=== PATIENT | male | born 1985 | race African-American/Black ===

== ENCOUNTER 2016-06-24 20:33 | Emergency (ER) | payer MEDICARE, MEDICAID ==
[2016-06-24 22:04] LABS: APPEARANCE CLEAR (CLEAR); BILIRUBIN NEGATIVE (NEGATIVE); COLOR YELLOW (YELLOW); GLUCOSE NEGATIVE (NEGATIVE); KETONE NEGATIVE (NEGATIVE); LEUKOCYTE ESTERASE TRACE (NEGATIVE); NITRITE NEGATIVE (NEGATIVE); PROTEIN NEGATIVE (NEGATIVE); SPECIFIC GRAVITY 1.015 (1.005-1.020); UROBILINOGEN NORMAL (NORMAL)
[2016-06-24 22:06] LABS: BACTERIA NONE SEEN /hpf (NONE SEEN); CALCIUM OXALATE CRYSTALS OCC /hpf (NONE SEEN); EPITHELIAL CELLS 0-5 /hpf (0-5); RED CELLS - URINE 0-5 /hpf (0-5); WHITE CELLS - URINE 0-5 /hpf (0-5)
== END 2016-06-24 23:30 | disposition home or self-care (01) ==
LOC: D.ER 20:33
PROVIDERS: Family Medicine
DX: R42 Dizziness and giddiness (principal); F31.9 Bipolar disorder, unspecified

== ENCOUNTER 2016-06-29 19:49 | Emergency (ER) | payer MEDICARE, MEDICAID ==
[2016-06-29 21:33] LABS: APPEARANCE CLEAR (CLEAR); COLOR YELLOW (YELLOW)
[2016-06-29 21:34] LABS: BILIRUBIN NEGATIVE (NEGATIVE); GLUCOSE NEGATIVE (NEGATIVE); KETONE NEGATIVE (NEGATIVE); LEUKOCYTE ESTERASE TRACE (NEGATIVE); NITRITE NEGATIVE (NEGATIVE); PROTEIN NEGATIVE (NEGATIVE); UROBILINOGEN NORMAL (NORMAL)
[2016-06-29 21:35] LABS: BACTERIA NONE SEEN /hpf (NONE SEEN); EPITHELIAL CELLS NSEEN /hpf (0-5); RED CELLS - URINE 0-5 /hpf (0-5); WHITE CELLS - URINE NSEEN /hpf (0-5)
== END 2016-06-29 23:47 | disposition home or self-care (01) ==
LOC: D.ER 19:49
PROVIDERS: Family Medicine
DX: N39.0 Urinary tract infection, site not specified (principal); F31.9 Bipolar disorder, unspecified

== ENCOUNTER 2016-10-15 18:09 | Emergency (ER) | payer MEDICARE, MEDICAID | END 2016-10-15 20:45 | disposition home or self-care (01) | LOC: D.ER 18:09 | DX: M25.561 Pain in right knee (principal); F17.200 Nicotine dependence, unspecified, uncomplicated; F31.89 Other bipolar disorder ==

== ENCOUNTER 2016-12-04 14:54 | Emergency (ER) | payer MEDICARE, MEDICAID ==
[2016-12-04 16:25] LABS: APPEARANCE CLEAR (CLEAR); BILIRUBIN NEGATIVE (NEGATIVE); COLOR YELLOW (YELLOW); GLUCOSE NEGATIVE (NEGATIVE); KETONE NEGATIVE (NEGATIVE); LEUKOCYTE ESTERASE TRACE (NEGATIVE); NITRITE NEGATIVE (NEGATIVE); PROTEIN NEGATIVE (NEGATIVE); SPECIFIC GRAVITY 1.015 (1.005-1.020); UROBILINOGEN NORMAL (NORMAL)
[2016-12-04 16:27] LABS: WHITE CELLS - URINE 0-5 /hpf (0-5)
== END 2016-12-04 16:50 | disposition home or self-care (01) ==
LOC: D.ER 14:54
PROVIDERS: Nurse Practitioner Acute Care
DX: N34.2 Other urethritis (principal); F17.200 Nicotine dependence, unspecified, uncomplicated; F31.89 Other bipolar disorder

== ENCOUNTER 2017-05-30 02:16 | Emergency (ER) | payer MEDICARE, MEDICAID | END 2017-05-30 03:32 | disposition home or self-care (01) | LOC: D.ER 02:16 | DX: J20.9 Acute bronchitis, unspecified (principal); J45.909 Unspecified asthma, uncomplicated; F17.200 Nicotine dependence, unspecified, uncomplicated ==

== ENCOUNTER 2017-09-01 20:24 | Emergency (ER) | payer MEDICARE, MEDICAID ==
[2017-09-01 20:52] LABS: APPEARANCE SLT CLOUDY (CLEAR); BILIRUBIN NEGATIVE (NEGATIVE); COLOR DK YELLOW (YELLOW); GLUCOSE NEGATIVE (NEGATIVE); KETONE NEGATIVE (NEGATIVE); NITRITE NEGATIVE (NEGATIVE); PROTEIN TRACE mg/dL (NEGATIVE); SPECIFIC GRAVITY 1.025 (1.005-1.020); UROBILINOGEN NORMAL (NORMAL)
[2017-09-01 22:16] LABS: BASOPHILS 0.2 % (0-2); EOSINOPHILS 2.1 % (0-7); HEMATOCRIT 44.9 % (42.0-54.0); HEMOGLOBIN 14.6 g/dL (13.5-17.5); IMMATURE GRANULOCYTES 0.1 % (0-5); LYMPHOCYTES 41.8 % (15-50); MCH 27.6 pg (26.0-34.0); MCHC 32.5 g/dL (31.0-37.0); MCV 84.9 fL (80.0-100.0); MEAN PLATELET VOLUME 9.7 fL (7.4-10.4); NEUTROPHILS 46.8 % (40-80); PLATELET COUNT 225 10x3/uL (130-400); RBC 5.29 10x6/uL (4.20-6.10); RDW 12.9 % (11.5-14.5)
[2017-09-01 22:29] LABS: ALBUMIN 4.1 g/dL (3.4-5.0); ALKALINE PHOSPHATASE 84 U/L (46-116); ALT (SGPT) 36 U/L (10-68); BILIRUBIN - TOTAL 0.17 mg/dL (0.2-1.3); C-REACTIVE PROTEIN < 0.2 mg/dL (0.0-0.9); CALC OSMOLALITY 277 mosm/kg (275-300); CALCIUM 9.4 mg/dL (8.5-10.1); CARBON DIOXIDE 28.2 mmol/L (21.0-32.0); CHLORIDE - SERUM 101 mmol/L (98-107); CREATININE - SERUM 1.9 mg/dL (0.6-1.3); GLUCOSE 94 mg/dL (74-106); POTASSIUM - SERUM 3.8 mmol/L (3.5-5.1); PROTEIN - SERUM 8.2 g/dL (6.4-8.2); SODIUM 137 mmol/L (136-145); UREA NITROGEN 23 mg/dL (7-18); eGFR NON AFRICAN AMERICAN 43 mL/min (90-120)
== END 2017-09-01 23:06 | disposition home or self-care (01) ==
LOC: D.ER 20:24
PROVIDERS: Emergency Medicine
DX: R19.7 Diarrhea, unspecified (principal); R10.32 Left lower quadrant pain; R10.31 Right lower quadrant pain; N28.9 Disorder of kidney and ureter, unspecified

== ENCOUNTER 2018-03-29 12:18 | Emergency (ER) | payer MEDICARE, MEDICAID ==
[~2018-03-29] VITALS: Ht 182.9 cm; Wt 122.7 kg
[2018-03-29 12:55] VITALS: Ht 182.9 cm; Wt 122.7 kg
[2018-03-29 17:39] LABS: BASOPHILS 0.3 % (0-2); EOSINOPHILS 2.7 % (0-7); HEMATOCRIT 43.7 % (42.0-54.0); HEMOGLOBIN 14.3 g/dL (13.5-17.5); IMMATURE GRANULOCYTES 0.1 % (0-5); LYMPHOCYTES 41.6 % (15-50); MCH 28.4 pg (26.0-34.0); MCHC 32.7 g/dL (31.0-37.0); MCV 86.7 fL (80.0-100.0); MEAN PLATELET VOLUME 9.3 fL (7.4-10.4); MONOCYTES 5.9 % (2-11); NEUTROPHILS 49.4 % (40-80); PLATELET COUNT 211 10x3/uL (130-400); RBC 5.04 10x6/uL (4.20-6.10); RDW 13.3 % (11.5-14.5); WBC 7.3 10x3/uL (4.8-10.8)
[2018-03-29 17:53] LABS: ANION GAP 14.7 mmol/L (8-16); BILIRUBIN - TOTAL 0.21 mg/dL (0.2-1.3); CALCIUM 9.3 mg/dL (8.5-10.1); CARBON DIOXIDE 27.4 mmol/L (21.0-32.0); CREATININE - SERUM 1.3 mg/dL (0.6-1.3); POTASSIUM - SERUM 4.1 mmol/L (3.5-5.1); PROTEIN - SERUM 7.9 g/dL (6.4-8.2)
[2018-03-29] MEDS ORDERED: ANTIVERT12.5 MG PO (18:08)
[2018-03-29 18:27] VITALS: BP 136/72
== END 2018-03-29 18:29 | disposition home or self-care (01) ==
LOC: D.ER 12:18
PROVIDERS: Family Medicine
DX: R42 Dizziness and giddiness (principal); R53.83 Other fatigue; R35.0 Frequency of micturition; F17.200 Nicotine dependence, unspecified, uncomplicated

== ENCOUNTER 2018-04-07 00:29 | Emergency (ER) | payer MEDICARE, MEDICAID ==
[~2018-04-07 00:29] MED LIST: ANTIVERT12.5 MG PO
[2018-04-07 00:34] VITALS: Ht 182.9 cm
[2018-04-07] MEDS ORDERED: PENICILLIN V P500 MG PO (01:47)
[2018-04-07] MEDS ORDERED: NORCO 10-325 TA1 TAB PO (01:47)
[2018-04-07 02:05] VITALS: BP 142/88
== END 2018-04-07 02:05 | disposition home or self-care (01) ==
LOC: D.ER 00:29
DX: K04.7 Periapical abscess without sinus (principal); K08.89 Other specified disorders of teeth and supporting structures; F17.200 Nicotine dependence, unspecified, uncomplicated

== ENCOUNTER 2018-08-12 16:48 | Emergency (ER) | payer MEDICARE, MEDICAID ==
[~2018-08-12] VITALS: Ht 182.9 cm; Wt 122.7 kg
[~2018-08-12 16:48] MED LIST changes: +NORCO 10-325 TA1 TAB PO; +PENICILLIN V P500 MG PO
[2018-08-12 17:24] VITALS: Ht 182.9 cm; Wt 122.7 kg
[2018-08-12 18:24] LABS: T4 THYROXIN - FREE 1.02 ng/dL (0.76-1.46); THYROID STIMULATING HORMONE 1.51 uIU/mL (0.36-3.74)
[2018-08-12 19:18] VITALS: BP 148/72
== END 2018-08-12 19:18 | disposition home or self-care (01) ==
LOC: D.ER 16:48
PROVIDERS: Emergency Medicine
DX: Z71.1 Person with feared health complaint in whom no diagnosis is made (principal)

== ENCOUNTER 2018-09-17 00:16 | Emergency (ER) | payer MEDICARE, MEDICAID ==
[~2018-09-17] VITALS: Ht 182.9 cm; Wt 127.0 kg
[2018-09-17 00:44] VITALS: Ht 182.9 cm; Wt 127.0 kg
[2018-09-17 02:04] LABS: ALBUMIN 3.8 g/dL (3.4-5.0); ALKALINE PHOSPHATASE 90 U/L (46-116); ALT (SGPT) 29 U/L (10-68); BILIRUBIN - TOTAL 0.12 mg/dL (0.2-1.3); CALC OSMOLALITY 280 mosm/kg (275-300); CALCIUM 8.8 mg/dL (8.5-10.1); CARBON DIOXIDE 32.3 mmol/L (21.0-32.0); CHLORIDE - SERUM 103 mmol/L (98-107); CREATININE - SERUM 1.6 mg/dL (0.6-1.3); GLUCOSE 97 mg/dL (74-106); POTASSIUM - SERUM 3.6 mmol/L (3.5-5.1); PROTEIN - SERUM 7.9 g/dL (6.4-8.2); SODIUM 139 mmol/L (136-145); UREA NITROGEN 20 mg/dL (7-18); eGFR NON AFRICAN AMERICAN 52 mL/min (90-120)
[2018-09-17 02:05] LABS: AMYLASE - SERUM 56 U/L (25-115); LIPASE 165 U/L (73-393)
[2018-09-17 02:28] LABS: APPEARANCE CLEAR (CLEAR); BILIRUBIN NEGATIVE (NEGATIVE); COLOR YELLOW (YELLOW); GLUCOSE NEGATIVE (NEGATIVE); KETONE NEGATIVE (NEGATIVE); NITRITE NEGATIVE (NEGATIVE); PROTEIN NEGATIVE (NEGATIVE); SPECIFIC GRAVITY 1.015 (1.005-1.020)
[2018-09-17 02:34] LABS: BASOPHILS 0.3 % (0-2); EOSINOPHILS 2.4 % (0-7); HEMATOCRIT 44.2 % (42.0-54.0); HEMOGLOBIN 14.2 g/dL (13.5-17.5); IMMATURE GRANULOCYTES 0.2 % (0-5); LYMPHOCYTES 35.2 % (15-50); MCH 28.1 pg (26.0-34.0); MCHC 32.1 g/dL (31.0-37.0); MCV 87.5 fL (80.0-100.0); MEAN PLATELET VOLUME 10.6 fL (7.4-10.4); MONOCYTES 8.3 % (2-11); NEUTROPHILS 53.6 % (40-80); PLATELET COUNT 234 10x3/uL (130-400); RBC 5.05 10x6/uL (4.20-6.10); RDW 13.1 % (11.5-14.5); WBC 8.8 10x3/uL (4.8-10.8)
[2018-09-17 02:40] LABS: TROPONIN-I < 0.017 ng/mL (0.000-0.060)
[2018-09-17] MEDS ORDERED: PROTONIX40 MG PO (03:37)
[2018-09-17] MEDS ORDERED: CARAFATE1 G PO (03:37)
[2018-09-17 03:53] VITALS: BP 169/89
== END 2018-09-17 03:53 | disposition home or self-care (01) ==
LOC: D.ER 00:16
PROVIDERS: Family Medicine
DX: K29.70 Gastritis, unspecified, without bleeding (principal); R11.2 Nausea with vomiting, unspecified

== ENCOUNTER 2019-03-17 01:51 | Emergency (ER) | payer MEDICARE, MEDICAID ==
[~2019-03-17] VITALS: Ht 182.9 cm; Wt 113.6 kg
[~2019-03-17 01:51] MED LIST changes: +CARAFATE1 G PO; +PROTONIX40 MG PO
[2019-03-17 01:55] VITALS: Ht 182.9 cm; Wt 113.6 kg
[2019-03-17] MEDS ORDERED: LISINOPRIL10 MG PO (01:59)
[2019-03-17] MEDS ORDERED: SOMA350 MG (01:59)
[2019-03-17] MEDS ORDERED: MECLIZINE HCL25 MG PO (01:59)
[2019-03-17 02:30] LABS: BASOPHILS 0.2 % (0-2); EOSINOPHILS 2.3 % (0-7); HEMATOCRIT 44.8 % (42.0-54.0); HEMOGLOBIN 14.5 g/dL (13.5-17.5); IMMATURE GRANULOCYTES 0.1 % (0-5); MCH 28.2 pg (26.0-34.0); MCHC 32.4 g/dL (31.0-37.0); MCV 87.2 fL (80.0-100.0); MEAN PLATELET VOLUME 9.7 fL (7.4-10.4); MONOCYTES 7.5 % (2-11); NEUTROPHILS 52.9 % (40-80); PLATELET COUNT 232 10x3/uL (130-400); RBC 5.14 10x6/uL (4.20-6.10); RDW 13.4 % (11.5-14.5); WBC 8.4 10x3/uL (4.8-10.8)
[2019-03-17 02:52] LABS: ALBUMIN 3.8 g/dL (3.4-5.0); ANION GAP 9.1 mmol/L (8-16); BILIRUBIN - TOTAL 0.14 mg/dL (0.2-1.3); CALCIUM 9.3 mg/dL (8.5-10.1); CARBON DIOXIDE 32.9 mmol/L (21.0-32.0); CREATININE - SERUM 1.5 mg/dL (0.6-1.3); PROTEIN - SERUM 7.5 g/dL (6.4-8.2); THYROID STIMULATING HORMONE 1.79 uIU/mL (0.36-3.74)
[2019-03-17] MEDS ORDERED: MIRALAX17 GM PO (02:58)
[2019-03-17] MEDS ORDERED: COLACE100 MG PO (02:58)
[2019-03-17 03:19] VITALS: BP 147/91
== END 2019-03-17 03:19 | disposition home or self-care (01) ==
LOC: D.ER 01:51
PROVIDERS: Family Medicine
DX: K59.00 Constipation, unspecified (principal); F17.210 Nicotine dependence, cigarettes, uncomplicated

== ENCOUNTER 2019-05-03 11:15 | Emergency (ER) | payer MEDICARE, MEDICAID ==
[~2019-05-03] VITALS: Ht 182.9 cm; Wt 124.5 kg
[~2019-05-03 11:15] MED LIST changes: +COLACE100 MG PO; +LISINOPRIL10 MG PO; +MECLIZINE HCL25 MG PO; +MIRALAX17 GM PO; +SOMA350 MG
[2019-05-03 11:27] VITALS: Ht 182.9 cm; Wt 124.5 kg
[2019-05-03 12:05] LABS: BASOPHILS 0.3 % (0-2); EOSINOPHILS 1.8 % (0-7); HEMOGLOBIN 14.4 g/dL (13.5-17.5); IMMATURE GRANULOCYTES 0.3 % (0-5); LYMPHOCYTES 32.3 % (15-50); MCH 28.2 pg (26.0-34.0); MCV 88.2 fL (80.0-100.0); MONOCYTES 7.4 % (2-11); NEUTROPHILS 57.9 % (40-80); PLATELET COUNT 230 10x3/uL (130-400); RDW 13.3 % (11.5-14.5); WBC 7.3 10x3/uL (4.8-10.8)
[2019-05-03 12:22] LABS: ANION GAP 9.7 mmol/L (8-16); CARBON DIOXIDE 29.2 mmol/L (21.0-32.0); CREATININE - SERUM 1.3 mg/dL (0.6-1.3); POTASSIUM - SERUM 3.9 mmol/L (3.5-5.1)
[2019-05-03 12:38] LABS: ALBUMIN 3.7 g/dL (3.4-5.0); BILIRUBIN - TOTAL 0.26 mg/dL (0.2-1.3); PROTEIN - SERUM 7.6 g/dL (6.4-8.2); THYROID STIMULATING HORMONE 2.08 uIU/mL (0.36-3.74)
[2019-05-03 13:16] VITALS: BP 127/68
== END 2019-05-03 13:17 | disposition home or self-care (01) ==
LOC: D.ER 11:15
PROVIDERS: Emergency Medicine
DX: R00.2 Palpitations (principal); I10 Essential (primary) hypertension; Z72.0 Tobacco use

== ENCOUNTER 2019-06-23 19:01 | Emergency (ER) | payer MEDICARE, MEDICAID ==
[~2019-06-23] VITALS: Ht 182.9 cm; Wt 121.4 kg
[2019-06-23 19:21] VITALS: Ht 182.9 cm; Wt 121.4 kg
[2019-06-23] MEDS ORDERED: MUCINEX DM ER1 EAC1 PO (21:19)
[2019-06-23] MEDS ORDERED: ZOFRAN ODT4 MG/UDTAB PO (21:19)
[2019-06-23] MEDS ORDERED: TAMIFLU75 MG PO (21:19)
[2019-06-23 22:29] VITALS: BP 147/77
== END 2019-06-23 22:19 | disposition home or self-care (01) ==
LOC: D.ER 19:01
DX: J11.1 Influenza due to unidentified influenza virus with other respiratory manifestations (principal); Z72.0 Tobacco use

== ENCOUNTER 2019-08-14 03:04 | Emergency (ER) | payer MEDICARE, MEDICAID ==
[~2019-08-14] VITALS: Ht 182.9 cm; Wt 123.8 kg
[~2019-08-14 03:04] MED LIST changes: +MUCINEX DM ER1 EAC1 PO; +TAMIFLU75 MG PO; +ZOFRAN ODT4 MG/UDTAB PO
[2019-08-14 03:09] VITALS: Ht 182.9 cm; Wt 123.8 kg
[2019-08-14] MEDS ORDERED: MOBIC7.5 MG PO (03:13)
[2019-08-14 03:41] LABS: BASOPHILS 0.2 % (0-2); EOSINOPHILS 2.2 % (0-7); HEMATOCRIT 41.6 % (42.0-54.0); HEMOGLOBIN 13.4 g/dL (13.5-17.5); IMMATURE GRANULOCYTES 0.1 % (0-5); LYMPHOCYTES 39.6 % (15-50); MCH 28.1 pg (26.0-34.0); MCHC 32.2 g/dL (31.0-37.0); MCV 87.2 fL (80.0-100.0); MEAN PLATELET VOLUME 9.8 fL (7.4-10.4); MONOCYTES 8.6 % (2-11); NEUTROPHILS 49.3 % (40-80); PLATELET COUNT 239 10x3/uL (130-400); RBC 4.77 10x6/uL (4.20-6.10); WBC 8.5 10x3/uL (4.8-10.8)
[2019-08-14 03:48] LABS: BACTERIA FEW /hpf (NEGATIVE); EPITHELIAL CELLS 0-5 /hpf (0-5); RED CELLS - URINE 0-5 /hpf (0-5); WHITE CELLS - URINE 0-5 /hpf (NEGATIVE)
[2019-08-14 03:50] LABS: CALC OSMOLALITY 281 mosm/kg (275-300); CALCIUM 8.7 mg/dL (8.5-10.1); CARBON DIOXIDE 26.6 mmol/L (21.0-32.0); CHLORIDE - SERUM 107 mmol/L (98-107); CREATININE - SERUM 1.5 mg/dL (0.6-1.3); GLUCOSE 105 mg/dL (74-106); POTASSIUM - SERUM 3.9 mmol/L (3.5-5.1); SODIUM 141 mmol/L (136-145); UREA NITROGEN 14 mg/dL (7-18); eGFR NON AFRICAN AMERICAN 56 mL/min (90-120)
[2019-08-14 04:00] LABS: ALBUMIN 3.6 g/dL (3.4-5.0); ALKALINE PHOSPHATASE 80 U/L (30-120); ALT (SGPT) 27 U/L (10-68); AMYLASE - SERUM 46 U/L (25-115); LIPASE 122 U/L (73-393); PROTEIN - SERUM 7.3 g/dL (6.4-8.2)
[2019-08-14 04:03] LABS: TROPONIN-I < 0.017 ng/mL (0.000-0.060)
[2019-08-14 07:03] VITALS: BP 136/97
== END 2019-08-14 06:24 | disposition home or self-care (01) ==
LOC: D.ER 03:04
PROVIDERS: Family Medicine
DX: R19.7 Diarrhea, unspecified (principal); R10.30 Lower abdominal pain, unspecified; I10 Essential (primary) hypertension; Z72.0 Tobacco use

== ENCOUNTER 2019-09-23 22:07 | Emergency (ER) | payer MEDICARE, MEDICAID ==
[~2019-09-23] VITALS: Ht 182.9 cm; Wt 113.6 kg
[~2019-09-23 22:07] MED LIST changes: +MOBIC7.5 MG PO
[2019-09-23 22:15] VITALS: Ht 182.9 cm; Wt 113.6 kg
[2019-09-23] MEDS ORDERED: ATIVAN0.5 MG PO (22:17)
[2019-09-23 22:54] LABS: BASOPHILS 0.4 % (0-2); BILIRUBIN NEGATIVE (NEGATIVE); EOSINOPHILS 1.4 % (0-7); GLUCOSE NEGATIVE (NEGATIVE); HEMATOCRIT 43.3 % (42.0-54.0); HEMOGLOBIN 13.8 g/dL (13.5-17.5); IMMATURE GRANULOCYTES 0.1 % (0-5); KETONE NEGATIVE (NEGATIVE); LYMPHOCYTES 36.9 % (15-50); MCH 27.7 pg (26.0-34.0); MCHC 31.9 g/dL (31.0-37.0); MCV 86.9 fL (80.0-100.0); MEAN PLATELET VOLUME 9.6 fL (7.4-10.4); NEUTROPHILS 54.2 % (40-80); NITRITE NEGATIVE (NEGATIVE); PLATELET COUNT 225 10x3/uL (130-400); RBC 4.98 10x6/uL (4.20-6.10); RDW 12.6 % (11.5-14.5); UROBILINOGEN NORMAL (NORMAL); WBC 7.9 10x3/uL (4.8-10.8)
[2019-09-23 23:05] LABS: ANION GAP 10.9 mmol/L (8-16); CALCIUM 8.9 mg/dL (8.5-10.1); CARBON DIOXIDE 26.6 mmol/L (21.0-32.0); CREATININE - SERUM 1.4 mg/dL (0.6-1.3); POTASSIUM - SERUM 3.5 mmol/L (3.5-5.1)
[2019-09-23 23:11] LABS: ALBUMIN 3.7 g/dL (3.4-5.0); BILIRUBIN - TOTAL 0.37 mg/dL (0.2-1.3); PROTEIN - SERUM 7.5 g/dL (6.4-8.2)
[2019-09-23] MEDS ORDERED: ULTRAM50 MG PO (23:29)
[2019-09-23 23:52] VITALS: BP 149/88
== END 2019-09-23 23:53 | disposition home or self-care (01) ==
LOC: D.ER 22:07
PROVIDERS: Family Medicine
DX: R10.9 Unspecified abdominal pain (principal); G89.29 Other chronic pain

== ENCOUNTER 2019-10-14 15:14 | Emergency (ER) | payer MEDICARE, MEDICAID ==
[~2019-10-14] VITALS: Ht 182.9 cm; Wt 120.5 kg
[~2019-10-14 15:14] MED LIST changes: +ATIVAN0.5 MG PO; +ULTRAM50 MG PO
[2019-10-14 15:22] VITALS: BP 136/98; Ht 182.9 cm; Wt 120.5 kg
[2019-10-14 16:03] LABS: BASOPHILS 0.4 % (0-2); EOSINOPHILS 1.2 % (0-7); HEMATOCRIT 44.1 % (42.0-54.0); IMMATURE GRANULOCYTES 0.1 % (0-5); MCH 27.6 pg (26.0-34.0); MCHC 31.7 g/dL (31.0-37.0); MCV 86.8 fL (80.0-100.0); MEAN PLATELET VOLUME 9.6 fL (7.4-10.4); MONOCYTES 6.5 % (2-11); NEUTROPHILS 54.8 % (40-80); PLATELET COUNT 252 10x3/uL (130-400); RBC 5.08 10x6/uL (4.20-6.10); RDW 12.6 % (11.5-14.5); WBC 7.3 10x3/uL (4.8-10.8)
[2019-10-14 16:14] LABS: ANION GAP 13.9 mmol/L (8-16); CALCIUM 9.2 mg/dL (8.5-10.1); CARBON DIOXIDE 23.9 mmol/L (21.0-32.0); CREATININE - SERUM 1.3 mg/dL (0.6-1.3); POTASSIUM - SERUM 3.8 mmol/L (3.5-5.1)
[2019-10-14 16:21] LABS: BILIRUBIN - TOTAL 0.23 mg/dL (0.2-1.3); PROTEIN - SERUM 7.9 g/dL (6.4-8.2)
[2019-10-14 16:22] LABS: BILIRUBIN NEGATIVE (NEGATIVE); GLUCOSE NEGATIVE (NEGATIVE); KETONE NEGATIVE (NEGATIVE); NITRITE NEGATIVE (NEGATIVE); SPECIFIC GRAVITY 1.025 (1.005-1.020); UDS - AMPHET NEGATIVE QUAL (NEGATIVE); UDS - BARB NEGATIVE QUAL (NEGATIVE); UDS - BENZO NEGATIVE QUAL (NEGATIVE); UDS - COCAINE NEGATIVE QUAL (NEGATIVE); UDS - OPIATE NEGATIVE QUAL (NEGATIVE); UDS - PCP NEGATIVE QUAL (NEGATIVE); UDS - THC NEGATIVE QUAL (NEGATIVE); UROBILINOGEN NORMAL (NORMAL)
[2019-10-14] MEDS ORDERED: VISTARIL25 MG PO (17:15)
== END 2019-10-14 17:54 | disposition home or self-care (01) ==
LOC: D.ER 15:14
PROVIDERS: Family Medicine
DX: F41.8 Other specified anxiety disorders (principal); F43.9 Reaction to severe stress, unspecified; I10 Essential (primary) hypertension; Z72.0 Tobacco use

== ENCOUNTER 2019-10-15 11:53 | Emergency (ER) | payer MEDICARE, MEDICAID ==
[~2019-10-15 11:53] MED LIST changes: +VISTARIL25 MG PO
[2019-10-15 12:14] VITALS: Ht 182.9 cm
== END 2019-10-15 12:19 | disposition home or self-care (01) ==
LOC: D.ER 11:53
DX: Z71.1 Person with feared health complaint in whom no diagnosis is made (principal); I10 Essential (primary) hypertension

== ENCOUNTER 2019-11-02 11:19 | Emergency (ER) | payer MEDICARE, MEDICAID ==
[~2019-11-02] VITALS: Ht 182.9 cm; Wt 117.7 kg
[2019-11-02 11:24] VITALS: Ht 182.9 cm; Wt 117.7 kg
[2019-11-02] MEDS ORDERED: NAPROSYN500 MG PO (12:11)
[2019-11-02 12:20] VITALS: BP 132/82
== END 2019-11-02 12:20 | disposition home or self-care (01) ==
LOC: D.ER 11:19
DX: M25.531 Pain in right wrist (principal); I10 Essential (primary) hypertension; Z72.0 Tobacco use

== ENCOUNTER 2020-02-23 12:16 | Emergency (ER) | payer MEDICAID ==
[~2020-02-23] VITALS: Ht 182.9 cm; Wt 86.4 kg
[~2020-02-23 12:16] MED LIST changes: +NAPROSYN500 MG PO
[2020-02-23 12:27] VITALS: Ht 182.9 cm; Wt 86.4 kg
[2020-02-23 14:51] LABS: BASOPHILS 0.3 % (0-2); EOSINOPHILS 2.5 % (0-7); HEMATOCRIT 43.9 % (42.0-54.0); IMMATURE GRANULOCYTES 0.2 % (0-5); LYMPHOCYTES 36.8 % (15-50); MCH 27.8 pg (26.0-34.0); MCHC 31.9 g/dL (31.0-37.0); MCV 87.1 fL (80.0-100.0); MEAN PLATELET VOLUME 9.3 fL (7.4-10.4); MONOCYTES 6.6 % (2-11); NEUTROPHILS 53.6 % (40-80); PLATELET COUNT 224 10x3/uL (130-400); RBC 5.04 10x6/uL (4.20-6.10); RDW 13.3 % (11.5-14.5); WBC 6.3 10x3/uL (4.8-10.8)
[2020-02-23 15:08] LABS: ANION GAP 8.1 mmol/L (8-16); CALCIUM 8.8 mg/dL (8.5-10.1); CREATININE - SERUM 1.4 mg/dL (0.6-1.3); POTASSIUM - SERUM 4.1 mmol/L (3.5-5.1)
[2020-02-23 15:14] LABS: ALBUMIN 3.6 g/dL (3.4-5.0); BILIRUBIN - TOTAL 0.36 mg/dL (0.2-1.3); PROTEIN - SERUM 7.5 g/dL (6.4-8.2)
[2020-02-23 16:52] LABS: BILIRUBIN NEGATIVE (NEGATIVE); KETONE NEGATIVE (NEGATIVE); NITRITE NEGATIVE (NEGATIVE); UROBILINOGEN NORMAL mg/dL (< 2)
[2020-02-23 17:00] LABS: UDS - AMPHET NEGATIVE QUAL (NEGATIVE); UDS - BARB NEGATIVE QUAL (NEGATIVE); UDS - BENZO NEGATIVE QUAL (NEGATIVE); UDS - COCAINE NEGATIVE QUAL (NEGATIVE); UDS - OPIATE NEGATIVE QUAL (NEGATIVE); UDS - PCP NEGATIVE QUAL (NEGATIVE); UDS - THC NEGATIVE QUAL (NEGATIVE)
[2020-02-24 07:15] VITALS: BP 132/89
== END 2020-02-24 07:15 ==
LOC: D.ER 12:16
PROVIDERS: Family Medicine
DX: R45.850 Homicidal ideations (principal); R44.0 Auditory hallucinations; I10 Essential (primary) hypertension; M54.9 Dorsalgia, unspecified